=== PATIENT | male | born 1990 ===

== ENCOUNTER 2016-09-19 00:47 | Emergency (ER) | payer OTHER ==
[2016-09-19 00:55] VITALS: TEMP 97.4
[2016-09-19] MEDS ORDERED: Bacitracin 500 Units/gm Oint Foilpak UD ONE (01:37)
[2016-09-19] MEDS ORDERED: Amoxicillin-Clav 875-125 mg Tab PO STA (01:38)
[2016-09-19] MEDS ORDERED: Tetanus/Diphtheria Toxoids 0.5 ml Syringe IM ONE (01:38)
[2016-09-19] MEDS ORDERED: Amoxicillin-Clav 875-125 mg Tab PO ONE (01:38)
--- NOTE | 2016-09-19 01:54 | C.PDOC ---
History Of Present Illness 26 y/o male presents to emergency department with complaint of dog bite to the right hand. Patient states it was his neighbor's dog that is immunized. Patient states not UTD with tetanus. Otherwise, denies fever, chills, numbness, weakness , or other associated symptoms. No other injuries. Time Seen by Provider: 09/19/16 01:05 Chief Complaint (Nursing): Bite History Per: Patient History/Exam Limitations: no limitations Onset/Duration Of Symptoms: Hrs Current Symptoms Are (Timing): Still Present Location Of Injury: Right: Hand, Posterior: Hand Quality Of Symptoms: Painful Recent travel outside of the [place]: No Past Medical History Reviewed: Historical Data, Nursing Documentation, Vital Signs Vital Signs: Last Vital Signs Temp 97.4 F L 09/19/16 00:49 Pulse 75 09/19/16 02:12 Resp 18 09/19/16 02:12 BP 152/86 H 09/19/16 02:12 Pulse Ox 97 09/19/16 03:36 - Medical History PMH: No Chronic Diseases Family History: States: Unknown Family Hx - Social History Hx Alcohol Use: Yes Hx Substance Use: Yes - Immunization History Hx Tetanus Toxoid Vaccination: No Hx Influenza Vaccination: No Hx Pneumococcal Vaccination: No Review Of Systems Except As Marked, All Systems Reviewed And Found Negative. Constitutional: Negative for: Fever, Chills Musculoskeletal: Positive for: Hand Pain (+lacerations, abrasions) Skin: Negative for: Rash Neurological: Negative for: Weakness, Numbness Physical Exam - Physical Exam Appears: Non-toxic, No Acute Distress Skin: Warm, Dry Head: Atraumatic, Normacephalic Eye(s): bilateral: Normal Inspection Extremity: Normal ROM, Capillary Refill (< 2 sec.), No Deformity, Other (Dorsal aspect of right hand: 1.0 cm laceration. Mid-palmar aspect of right hand: 0.5 cm laceration with multiple abrasions/excoriations to all fingers of right hand. ) Pulses: Left Radial: Normal, Right Radial: Normal Neurological/Psych: Oriented x3, Normal Motor, Normal Sensation Gait: Steady ED Course And Treatment O2 Sat by Pulse Oximetry: 97 (RA) Pulse Ox Interpretation: Normal Progress Note: Tetanus, motrin, abx given. Hand irrigated. Bacitracin, dressing applied. On reassessment, patient is comfortable, and is in no acute distress. Patient instructed to follow up with clinic/PMD within 1-2 days. Disposition Counseled Patient/Family Regarding: Diagnosis, Need For Followup, Rx Given - Disposition Referrals: Monika Rod MD [Staff Provider] - Disposition: HOME/ ROUTINE Disposition Time: 01:55 Condition: STABLE Additional Instructions: Please follow up with Hand surgeon- call for appointment Take meds as directed Follow wound care instructions Return to ER if worse Prescriptions: Amoxicillin/Clavulanate [Augmentin 875 MG-125 MG] 1 tab PO BID #14 tab Ibuprofen [Motrin] 600 mg PO Q6H #20 tab Instructions: Animal Bite (ED), Acute Wound Care (ED) - Clinical Impression Clinical Impression: Animal bite wound, Animal bite of right hand - PA / [employer] / Resident Statement MD/DO has reviewed & agrees with the documentation as recorded. - Scribe Statement The provider has reviewed the documentation as recorded by the Sharmin Contreras All medical record entries made by the Alliibveena were at my direction and personally dictated by me. I have reviewed the chart and agree that the record accurately reflects my personal performance of the history, physical exam, medical decision making, and the department course for this patient. I have also personally directed, reviewed, and agree with the discharge instructions and disposition.
[2016-09-19 02:16] VITALS: BP 152/86; PULSE 75; RESP 18
[2016-09-19 03:36] VITALS: O2SAT 97
== END 2016-09-19 02:16 | disposition home or self-care (01) ==
LOC: C.ER 00:47
DX: S61.451A Open bite of right hand, initial encounter (principal); W54.0XXA Bitten by dog, initial encounter; Y92.89 Other specified places as the place of occurrence of the external cause